=== PATIENT | male | born 1995 | race African-American/Black ===

== ENCOUNTER 2024-09-18 12:32 | Emergency (ER) | payer BC, MEDICAID ==
[~2024-09-18] VITALS: Ht 190.5 cm; Wt 79.0 kg
[2024-09-18 13:10] VITALS: BP 129/84; PULSE 104; RESP 16; TEMP 98.3; O2SAT 98
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
[2024-09-18] MEDS ORDERED: BACL10TA PO (14:21)
[2024-09-18] MEDS ORDERED: IBUP-1456 PO (14:21)
== END 2024-09-18 14:42 | disposition home or self-care (01) ==
LOC: ER 12:32
DX: S76.012A Strain of muscle, fascia and tendon of left hip, initial encounter (principal); M54.2 Cervicalgia; F17.210 Nicotine dependence, cigarettes, uncomplicated; Z79.899 Other long term (current) drug therapy; V49.88XA Car occupant (driver) (passenger) injured in other specified transport accidents, initial encounter; Y93.I9 Activity, other involving external motion; Y92.488 Other paved roadways as the place of occurrence of the external cause; Y99.8 Other external cause status
CPT/HCPCS: 72040; 73502

== ENCOUNTER 2025-01-07 08:41 | Emergency (ER) | payer BC, MEDICAID ==
[~2025-01-07] VITALS: Ht 190.5 cm; Wt 75.3 kg
[~2025-01-07 08:41] MED LIST: BACL10TA PO; IBUP-1456 PO
[2025-01-07 09:04] VITALS: BP 140/74; PULSE 97; RESP 18; TEMP 98.1; O2SAT 96
--- NOTE | 2025-01-07 09:10 | ED.PDOC ---
History of Present Illness(SKN HPI Comments A 29 YEAR OLD MALE PRESENTS TO THE ED WITH COMPLAINT OF RASH. PATIENT STATES HE HAS BEEN EXPERIENCING A RASH ON HIS FACE AND UPPER CHEST FOR THE PAST 3 DAYS. PATIENT WAS CONCERNED HE MAY BE HAVING AN ALLERGIC REACTION. PATIENT DENIES FEVER, CHILLS, SHORTNESS OF BREATH, CHEST PAIN, ABDOMINAL PAIN, NAUSEA, VOMITING, HEADACHE, OR OTHER COMPLAINTS. NO OTHER SYMPTOMS OR MODIFYING FACTORS AT THIS TIME. PATIENT IS ALERT, ORIENTED X 4, AND HAS STEADY GAIT. Chief Complaint: Rash Time Seen by MD: 08:54 Primary Care Provider: BALJIT History of Present Illness: Nurses Notes, Medications, Allergies Allergies: Coded Allergies: NO KNOWN ALLERGIES (Unverified , 06/18/16) Home Meds Active Scripts Triamcinolone Acetonide (Triamcinolone Acetonide) 0.025 % Cre, 1 APPLIC TOP BID, #60 GRAMS Prov:SHREYA LOPEZ 01/07/25 Methylprednisolone (Medrol Dosepak) 4 Mg Serafin, 4 MG PO UD, #21 TAB UAD Prov:SHREYA LOPEZ 01/07/25 Baclofen (Baclofen) 10 Mg Tab, 10 MG PO BID, #20 TAB Prov:SHREYA LOPEZ 09/18/24 Ibuprofen (Ibuprofen) 800 Mg Tab, 1 TAB PO TID, #30 TAB Prov:SHREYA LOPEZ 09/18/24 Information Source: Patient Mode of Arrival: Ambulatory Severity: Moderate Timing: Days Duration: Since onset, Days Prehospital treatment: None Location: Chest (UPPER CHEST), Face Mechanism: Spontaneous Onset Developed: Rash Occurence: Indoors Object: None Condition of Object: None Retained Foreign Body: No Wound Type: None Immunization Status of Animal: NA Tetanus: Unknown History of: None Associated Signs and Symptoms: Redness Past Medical History Past Medical History (Other): ECZEMA Surgical History: Denies all surgeries Family History Family History: Reviewed,noncontributory to illness Social History Smoker: Cigarettes Alcohol: Denies ETOH Use Drugs: Marijuana Lives In: Home Constitutional: denies: chills, diaphoresis, fatigue, fever, malaise, sweats, weakness, others EENTM: denies: blurred vision, double vision, ear bleeding, ear discharge, ear drainage, ear pain, ear ringing, eye pain, eye redness, hearing loss, mouth pain, mouth swelling, nasal discharge, nose bleeding, nose congestion, nose pain, photophobia, tearing, throat pain, throat swelling, voice changes, others Respiratory: denies: cough, hemoptysis, orthopnea, SOB at rest, shortness of breath, SOB with excertion, stridor, wheezing, others Cardiovascular: denies: chest pain, dizzy spells, diaphoresis, Dyspnea on exertion, edema, irregular heart beat, left arm pain, lightheadedness, palpitations, PND, syncope, others Gastrointestinal: denies: abdomen distended, abdominal pain, blood streaked bowels, constipated, diarrhea, dysphagia, difficulty swallowing, hematemesis, melena, nausea, poor appetite, poor fluid intake, rectal bleeding, rectal pain, vomiting, others Genitourinary: denies: burning, dysuria, flank pain, frequency, hematuria, incontinence, penile discharge, penile sore, pain, testicle pain, testicle swelling, urgency, others Neurological: denies: dizziness, fainting, headache, left sided numbness, left sided weakness, numbness, paresthesia, pre-existing deficit, right sided numbness, right sided weakness, seizure, speech problems, tingling, tremors, weakness, others Musculoskeletal: denies: back pain, gout, joint pain, joint swelling, muscle pain, muscle stiffness, neck pain, others Integumetry: reports: rash; denies: bruises, change in color, change in hair/nails, dryness, laceration, lesions, lumps, wounds, others Allergic/Immunocompromised: denies: Difficulty Healing, Frequent Infections, Hives, Itching, others Hematologic/Lymphatic: denies: anemia, blood clots, easy bleeding, easy bruising, swollen glands, others Endocrine: denies: excessive hunger, excessive sweating, excessive thirst, excessive urination, flushing, intolerance to cold, intolerance to heat, unexplained weight gain, unexplained weight loss, others Psychiatric: denies: anxiety, bipolar disorder, depression, hopeless, panic disorder, schizophrenia, sleepless, suicidal, others All Other Systems: Reviewed and Negative Physical Exam General Appearance: No Apparent Distress, Normal HEENT: Normal ENT Inspection, PERRL/EOMI, Pharynx Normal, TMs Normal Neck: Full Range of Motion, Non-Tender, Normal, Normal Inspection Respiratory: Chest Non-Tender, Lungs Clear, No Accessory Muscle Use, No Respiratory Distress, Normal Breath Sounds Cardiovascular: No Edema, No JVD, No Murmur, No Gallop, Normal Peripheral Pulses, Regular Rate/Rhythm Breast Exam: Deferred Gastrointestinal: No Organomegaly, Non Tender, No Pulsatile Mass, Normal Bowel Sounds, Soft Genitalia: Deferred Pelvic: Deferred Rectal: Deferred Extremities: No calf tenderness, Normal capillary refill, Normal inspection, Normal range of motion, Non-tender, No pedal edema Musculoskeletal : Apperance: Normal Neurologic: 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 ), Warm Peripheral Pulses: 2+ carotid (R), 2+ carotid (L) Lymphatic: No Adenopathy Was a procedure done? Was a procedure done?: No Differential Diagnosis (INTG) Differential Diagnosis: N/A Differential Diagnosis: Atopic dermatitis, Contact Dermatitis, Tinea, Urticaria, Other (ALLERGIC REACTION) Differential Diagnosis: N/A Abscess: N/A Differential Diagnosis: N/A X-Ray, Labs, Meds, VS Vital Signs Date Time Temp Pulse Resp B/P (MAP) Pulse Ox O2 Delivery O2 Flow Rate FiO2 01/07/25 09:04 97 18 96 Room Air 01/07/25 09:04 98.1 97 18 140/74 (96) 96 98.1 01/07/25 08:48 98.1 97 18 140/74 (96) 96 98.1 Current Medications Medications (Trade) Dose Ordered Sig/Bryson Route Start Time Stop Time Status Last Admin Epinephrine HCl 0.3 mg ONCE ONCE IM 01/07/25 09:15 01/07/25 09:16 DC 01/07/25 09:21 Methylprednisolone Sodium Succinate (Solu Medrol) 125 mg ONCE ONCE IM 01/07/25 09:15 01/07/25 09:16 DC 01/07/25 09:21 X-Ray, Labs, Meds, VS Comment EXTERNAL MEDICAL RECORDS REVIEWED: [NONE] INDEPENDENT HISTORIANS: [NONE] SOCIAL DETERMINANTS OF HEALTH: [NONE] LABS ORDERED: NONE REVIEWED AND INTERPRETED RESULTS: NONE IMAGING ORDERED: NONE TREATMENTS ORDERED: EPINEPHRINE 0.3 MG IM, SOLU-MEDROL 125 MG IM PROCEDURES PERFORMED: NONE CRITICAL CARE TIME: NONE I HAVE DISCUSSED THE PATIENT WITH THE ATTENDING PHYSICIAN DR. VAZ AND HE AGREES WITH THE PATIENT'S PLAN OF CARE AND DISPOSITION. BASED ON HISTORY OF PRESENT ILLNESS, AND PHYSICAL EXAM, PATIENT WILL BE DISCHARGED HOME. DISCUSSED PLAN FOR DISCHARGE HOME WITH RX [MEDROL DOSEPAK]. MEDICATION WARNINGS GIVEN. SHARED DECISION MAKING: PATIENT INSTRUCTED TO FOLLOW UP WITH PRIMARY CARE PROVIDER IN 1-2 DAYS FOR RE-EVALUATION OF SYMPTOMS. PATIENT VERBALIZES UNDERSTANDING TO RETURN TO ED FOR NEW OR WORSENING SYMPTOMS OR IF FOLLOW UP WITH PCP CANNOT BE OBTAINED. PATIENT FEELS COMFORTABLE GOING HOME AT THIS TIME. ALL QUESTIONS ADDRESSED AT TIME OF DISCHARGE. Time of 1ST Reevaluation: 09:40 Reevaluation 1ST: Improved Patient Education/Counseling: Diagnosis, Treatment, Need For Follow Up Family Education/Counseling: Diagnosis, Treatment, Need For Follow Up Medical Screening: No EMC Exist At This Time Departure 1 Departure Time of Disposition: 09:40 Impression: Primary Impression: Allergic reaction Qualified Codes: T78.40XA - Allergy, unspecified, initial encounter Disposition: HOME / SELF CARE / HOMELESS Condition: Stable Additional Instructions: FOLLOW-UP WITH PCP IN 1 TO 2 DAYS. TAKE MEDICATIONS PRESCRIBED. RETURN TO ED FOR ANY NEW OR WORSENING SYMPTOMS. e-Prescriptions Triamcinolone Acetonide (Triamcinolone Acetonide) 0.025 % Cre 1 APPLIC TOP BID, #60 GRAMS Prov: SHREYA LOPEZ 01/07/25 Methylprednisolone (Medrol Dosepak) 4 Mg Serafin 4 MG PO UD, #21 TAB UAD Prov: SHREYA LOPEZ 01/07/25 Discharged With: Self Critical Care Note Critical Care Time?: No Stability Stability form required: No I personally scribed for SHREYA LOPEZ ([email or web address]) on 01/07/25 at 09:10. Electronically submitted by Robert Mix ([email or web address]). SHREYA LOPEZ January 07, 2025 09:10
[2025-01-07] MEDS: EPINEPHrine HCL 1 MG/1 ML AMP IM ONE (09:21)
[2025-01-07] MEDS: methylPREDNISolone SOD SUCC 125 MG/2 ML VL IM ONE (09:21)
[2025-01-07] MEDS ORDERED: METH4PAK PO (09:37)
[2025-01-07] MEDS ORDERED: TRIA0.02 TOP (09:37)
== END 2025-01-07 09:46 | disposition home or self-care (01) ==
LOC: ER 08:41
DX: T78.40XA Allergy, unspecified, initial encounter (principal); F17.210 Nicotine dependence, cigarettes, uncomplicated; F12.90 Cannabis use, unspecified, uncomplicated; Z79.899 Other long term (current) drug therapy; Z79.1 Long term (current) use of non-steroidal anti-inflammatories (NSAID); X58.XXXA Exposure to other specified factors, initial encounter
CPT/HCPCS: 96372; 99284; J0171; J2919

== ENCOUNTER 2025-02-08 15:10 | Emergency (ER) | payer BC, MEDICAID ==
[~2025-02-08] VITALS: Ht 190.5 cm; Wt 77.4 kg
[~2025-02-08 15:10] MED LIST changes: +METH4PAK PO; +TRIA0.02 TOP
[2025-02-08 15:20] VITALS: BP 129/87; PULSE 110; RESP 16; TEMP 98.3; O2SAT 98
[2025-02-08] MEDS ORDERED: TRIA0.02 TOP (15:24)
[2025-02-08] MEDS ORDERED: METH4PAK PO (15:24)
--- NOTE | 2025-02-08 15:28 | ED.PDOC ---
HPI Allergic reaction HPI Comments 29 year old male presents to the ED with a chief complaint of allergic reaction onset 2 days. Patient states he was seen in this ED on 01/07/25 due to similar symptoms, was prescribed Triamcinolone cream and Methylprednisolone, improved symptoms. Patient states he took a shower, after washing off conditioner he n oticed face began to experience burning sensation, then developed mild facial swelling and itching, along with a rash on his neck and shoulders. Denies any PMHx as well as shortness of breath, cough, congestion, nausea, vomiting, diarrhea, abdominal pain, chest pain. No other symptoms or modifying factors present at this time. Chief Complaint: Allergic Reaction Time Seen by MD: 15:20 Primary Care Provider: UNK Reviewed Notes: Medications, Allergies Allergies: Coded Allergies: NO KNOWN ALLERGIES (Unverified , 06/18/16) Home Meds Active Scripts Triamcinolone Acetonide (Triamcinolone Acetonide) 0.025 % Cre, 1 APPLIC TOP BID, #60 GRAMS Prov:SFOIA BANDA MD 02/08/25 Methylprednisolone (Medrol Dosepak) 4 Mg Serafin, 4 MG PO UD, #21 TAB UAD Prov:SOFIA BANDA MD 02/08/25 Baclofen (Baclofen) 10 Mg Tab, 10 MG PO BID, #20 TAB Prov:SHREYA LOPEZ 09/18/24 Ibuprofen (Ibuprofen) 800 Mg Tab, 1 TAB PO TID, #30 TAB Prov:SHREYA LOPEZ 09/18/24 Information Source: Patient Mode of Arrival: Ambulatory Severity: Moderate Rash: Moderate SOB: None Difficulty swallowing: None Pruritus: None Timing: Days Duration: Since onset Prehospital treatment: None Location: Chest, Face Exposed to: Other Developed: Generalized erythema, Rash History of: Urticaria Modyifying Factors: None Past Medical History PAST MEDICAL HISTORY: Denies Surgical History: Denies all surgeries Family History Family History: Reviewed,noncontributory to illness Social History Smoker: Cigarettes Alcohol: Denies ETOH Use Drugs: Marijuana Lives In: Home All Other Systems: Reviewed and Negative (as perHPI) Physical Exam General Appearance: No Apparent Distress HEENT: Pharynx Normal, Other (Pupils and face symmetric. Moist mucous membranes. Subtle forehead and cheek soft tissue swelling and erythema. ) Neck: Full Range of Motion, Normal Inspection Respiratory: Lungs Clear, No Accessory Muscle Use, No Respiratory Distress, Normal Breath Sounds Cardiovascular: No JVD, Regular Rate/Rhythm Breast Exam: Deferred Gastrointestinal: Non Tender, Soft Genitalia: Deferred Pelvic: Deferred Rectal: Deferred Extremities: Normal inspection, Normal range of motion, Non-tender, No pedal edema Neurologic: Alert (Oriented x4), Normal Affect, Normal Mood, Other (Ambulatory) Cerebellar Function: NOT DONE Reflexes: NOT DONE Skin: Dry, Rash (Erythematous papular rash on lower neck and left shoulder), Warm Lymphatic: NOT DONE Was a procedure done? Was a procedure done?: No Differential diagnosis (all) Differential Diagnosis: Angioedema, Contact Dermatitis, Urticaria X-Ray, Labs, Meds, VS Vital Signs Date Time Temp Pulse Resp B/P (MAP) Pulse Ox O2 Delivery O2 Flow Rate FiO2 02/08/25 15:20 98.3 110 16 129/87 (101) 98 98.3 Current Medications Medications (Trade) Dose Ordered Sig/Bryson Route Start Time Stop Time Status Last Admin Dexamethasone Sodium Phosphate (Decadron Injection) 10 mg ONCE ONCE IM 02/08/25 15:30 02/08/25 15:31 DC 02/08/25 15:30 Diphenhydramine HCl (Benadryl Capsule) 50 mg ONCE ONCE PO 02/08/25 15:30 02/08/25 15:31 DC 02/08/25 15:31 X-Ray, Labs, Meds, VS Comment 29-year-old male with no significant past medical history presenting with an allergic reaction characterized by rash and mild soft tissue swelling Vitals remarkable for heart rate 110 Exam remarkable for erythematous rash on face, lower neck and shoulders Rhythm strip independently interpreted by me: Sinus tach, rate 110, no ectopy. Patient treated with the following in the ED: Decadron 10 mg IM, Benadryl 50 mg p.o. On re-evaluation, patient states symptoms are improving. Tachycardia has resolved and other vitals were stable. Patient does not appear septic at this time, as tachycardia is likely due to discomfort. Patient appears stable for discharge with close outpatient follow-up with his primary physician. Patient states the medications prescribed on his last visit for the same complaint were effective, so these were renewed. Time of 1ST Reevaluation: 15:50 Reevaluation 1ST: Unchanged Time of 2ND Reevaluation: 16:03 Reevaluation 2ND: Improved Patient Education/Counseling: Diagnosis, Treatment, Prognosis Family Education/Counseling: No Family Present Departure 1 Departure Time of Disposition: 16:03 Impression: Primary Impression: Allergic reaction Qualified Codes: T78.40XA - Allergy, unspecified, initial encounter Disposition: HOME / SELF CARE / HOMELESS Condition: Stable Additional Instructions: I have prescribed the same medications you were prescribed on your last visit. Follow-up with your primary doctor in 1-2 days. e-Prescriptions Triamcinolone Acetonide (Triamcinolone Acetonide) 0.025 % Cre 1 APPLIC TOP BID, #60 GRAMS Prov: SOFIA BANDA MD 02/08/25 Methylprednisolone (Medrol Dosepak) 4 Mg Serafin 4 MG PO UD, #21 TAB UAD Prov: SOFIA BANDA MD 02/08/25 Discharged With: Self Critical Care Note Critical Care Time?: No Stability Stability form required: No Heart Score Heart Score: Heart Score Response (Comments) Value History N/A 0 EKG N/A 0 Age N/A 0 Risk Factors N/A 0 Troponin N/A 0 Total 0 I personally scribed for SOFIA BANDA MD ([email or web address]) on 02/08/25 at 15:28. Electronically submitted by Aurelia Reyes ([email or web address]). SOFIA BANDA MD Feb 08, 2025 15:28
[2025-02-08] MEDS: DexAMETHasone SOD PHOS 10MG/1ML VIAL INJ IM ONE (15:30)
[2025-02-08] MEDS: diphenhdrAMINE HCL 25 MG CAP PO ONE (15:31)
== END 2025-02-08 16:44 | disposition home or self-care (01) ==
LOC: ER 15:10
DX: T78.40XA Allergy, unspecified, initial encounter (principal); F17.210 Nicotine dependence, cigarettes, uncomplicated; Z79.899 Other long term (current) drug therapy; X58.XXXA Exposure to other specified factors, initial encounter
CPT/HCPCS: 96372; 99283; J1100

== ENCOUNTER 2025-07-10 09:09 | Emergency (ER) | payer BC, MEDICAID ==
[~2025-07-10] VITALS: Ht 188 cm; Wt 80.9 kg
[2025-07-10 09:28] VITALS: BP 146/85; PULSE 99; RESP 17; TEMP 98.6; O2SAT 98
--- NOTE | 2025-07-10 09:53 | ED.PDOC ---
Psychiatric HPI Comments 30 y/o M, with no prior psychiatric history presents to the ED for CC of mental health. Patient reports, that his grandmother recently passed which has now brought on new stress into his life d/t separation of her assets. Patient endorses, since her passing x1week ago he has had a "difficult" time while at work with feelings of " being present but my mind is somewhere else". Patient admits, to the use of alcohol and drugs yesterday (07/10/25) and denies any usage while at work. At this time patient denies suicidal ideations, homicidal ideations, auditory hallucinations, or visual hallucinations. No other symptoms or modifying factors are present at this time. Chief Complaint: Mental Health Time Seen by MD: 09:35 Primary Care Provider: BALJIT Reviewed Notes: Nurses Notes, Medications, Allergies Information Source: Patient Mode of Arrival: Ambulatory Severity: Able to Care for Self Severity of Pain: None Severity of Mental Status: Moderate Severity of Symptoms: Moderate Timing: Weeks Duration: Since onset Ingestion: None Circumstance: None Current substance abuse: Unknown Stressors: Family History of: None Quality: None Location: None Location of pain or injury: None Associated signs and symptoms: None Past Medical History PAST MEDICAL HISTORY: Denies Surgical History: Denies all surgeries Family History Family History: Reviewed,noncontributory to illness Social History Smoker: Cigarettes Alcohol: Denies ETOH Use Drugs: Marijuana Lives In: Home Constitutional: denies: chills, diaphoresis, fatigue, fever, malaise, sweats, weakness, others EENTM: denies: blurred vision, double vision, ear bleeding, ear discharge, ear drainage, ear pain, ear ringing, eye pain, eye redness, hearing loss, mouth pain, mouth swelling, nasal discharge, nose bleeding, nose congestion, nose pain, photophobia, tearing, throat pain, throat swelling, voice changes, others Respiratory: denies: cough, hemoptysis, orthopnea, SOB at rest, shortness of breath, SOB with excertion, stridor, wheezing, others Cardiovascular: denies: chest pain, dizzy spells, diaphoresis, Dyspnea on exertion, edema, irregular heart beat, left arm pain, lightheadedness, palpitations, PND, syncope, others Gastrointestinal: denies: abdomen distended, abdominal pain, blood streaked bowels, constipated, diarrhea, dysphagia, difficulty swallowing, hematemesis, melena, nausea, poor appetite, poor fluid intake, rectal bleeding, rectal pain, vomiting, others Genitourinary: denies: burning, dysuria, flank pain, frequency, hematuria, incontinence, penile discharge, penile sore, pain, testicle pain, testicle swelling, urgency, others Neurological: reports: others (insomnia); denies: dizziness, fainting, headache, left sided numbness, left sided weakness, numbness, paresthesia, pre- existing deficit, right sided numbness, right sided weakness, seizure, speech problems, tingling, tremors, weakness Musculoskeletal: denies: back pain, gout, joint pain, joint swelling, muscle pain, muscle stiffness, neck pain, others Integumetry: denies: bruises, change in color, change in hair/nails, dryness, laceration, lesions, lumps, rash, wounds, others Allergic/Immunocompromised: denies: Difficulty Healing, Frequent Infections, Hives, Itching, others Hematologic/Lymphatic: denies: anemia, blood clots, easy bleeding, easy bruising, swollen glands, others Endocrine: denies: excessive hunger, excessive sweating, excessive thirst, excessive urination, flushing, intolerance to cold, intolerance to heat, unexplained weight gain, unexplained weight loss, others Psychiatric: denies: anxiety, bipolar disorder, depression, hopeless, panic disorder, schizophrenia, sleepless, suicidal, others All Other Systems: Reviewed and Negative Physical Exam General Appearance: Moderate Distress HEENT: Normal ENT Inspection, Pharynx Normal, TMs Normal Neck: Full Range of Motion, Non-Tender, Normal, Normal Inspection Respiratory: Chest Non-Tender, Lungs Clear, No Accessory Muscle Use, No Respiratory Distress, Normal Breath Sounds Cardiovascular: No Edema, No JVD, No Murmur, No Gallop, Normal Peripheral Pulses, Regular Rate/Rhythm Breast Exam: Deferred Gastrointestinal: No Organomegaly, Non Tender, No Pulsatile Mass, Normal Bowel Sounds, Soft Genitalia: Deferred Pelvic: Deferred Rectal: Deferred Extremities: No calf tenderness, Normal capillary refill, Normal inspection, Normal range of motion, Non-tender, No pedal edema Musculoskeletal : Apperance: Normal Neurologic: Alert, toll line mechanic II-XII nml as Tested, No Motor Deficits, Normal Affect, Normal Mood, No Sensory Deficits Cerebellar Function: Normal Reflexes: Normal Skin: Dry, Normal Color, Warm Peripheral Pulses: 3+ Radial (R), 3+ Radial (L) Lymphatic: No Adenopathy Was a procedure done? Was a procedure done?: No Psych Differential Dx Psych. Differential Dx: Anxiety, Depression X-Ray, Labs, Meds, VS Vital Signs Date Time Temp Pulse Resp B/P (MAP) Pulse Ox O2 Delivery O2 Flow Rate FiO2 07/10/25 09:28 98.6 99 17 146/85 (105) 98 98.6 07/10/25 09:28 Room Air* 0 21 07/10/25 09:13 98.1 97 16 146/83 98 98.1 Lab Test 07/10/25 09:30 07/10/25 09:24 Range/Units Urine Color Light-yellow Yellow Urine Clarity Clear Clear Urine pH 6.0 5.0-9.0 Urine Specific [place] 1.006 1.001-1.035 Urine Protein Negative Negative Urine Ketones Negative Negative Urine Blood Negative Negative /uL Urine Nitrite Negative Negative Urine Bilirubin Negative Negative Urine Urobilinogen Normal Negative mg/dL Urine Leukocyte Esterase Negative Negative /uL Urine RBC None seen 0 - 3 /hpf Urine Microscopic WBC 0-3 /HPF Urine Squamous Epithelial Cells Few <5 /hpf Urine Bacteria None seen None Seen /hpf Urine Glucose Normal Normal mg/dL Urine Opiates Screen Neg NEGATIVE Urine Fentanyl Screen Neg NEGATIVE Urine Barbiturates Screen Neg NEGATIVE Urine Phencyclidine Screen Neg NEGATIVE Urine Amphetamines Screen Neg NEGATIVE Urine Benzodiazepines Screen Neg NEGATIVE Urine Cocaine Screen Neg NEGATIVE Urine Cannabinoids Screen Neg NEGATIVE Plasma/Serum Blood Alcohol 304.4 H <10 mg/dL Patient alert. Vitals stable. Answering all questions. Ambulating. Has been going through a lot with family. Blood alcohol level elevated. Explained to the patient. Was told to follow up with his primary care physician. Was told to come back if there is any problem. Time of 1ST Reevaluation: 10:05 Reevaluation 1ST: Unchanged Patient Education/Counseling: Diagnosis, Treatment Family Education/Counseling: No Family Present Departure 1 Departure Time of Disposition: 11:14 Impression: Primary Impression: Alcohol abuse Disposition: 01 HOME / SELF CARE / HOMELESS Condition: Good Discharged With: Self Critical Care Note Critical Care Time?: No Stability Stability form required: No Heart Score Heart Score: Heart Score Response (Comments) Value History N/A 0 EKG N/A 0 Age N/A 0 Risk Factors N/A 0 Troponin N/A 0 Total 0 I personally scribed for KATHYA FORMAN MD ([email or web address]) on 07/10/25 at 09:53. Electronically submitted by Alicia Alan ([email or web address]). KATHYA FORMAN MD Jul 10, 2025 09:53
[2025-07-10 09:54] LABS: Urine Protein, UAD Negative (Negative)
[2025-07-10 10:06] LABS: Amphetamine Screen, Urine Neg (NEGATIVE); Barbiturate Scree,Urine Neg (NEGATIVE); Benzodiazephine Screen, Urine Neg (NEGATIVE); Cannabinoid Screen, Urine Neg (NEGATIVE); Cocaine Screen, Urine Neg (NEGATIVE); Opiate Scree,Urine Neg (NEGATIVE); Phencyclidine Screen, Urine Neg (NEGATIVE)
== END 2025-07-10 11:18 | disposition home or self-care (01) ==
LOC: ER 09:09 → EEVIPCON 09:09 → ER 11:18
DX: F10.10 Alcohol abuse, uncomplicated (principal); F17.210 Nicotine dependence, cigarettes, uncomplicated; F19.10 Other psychoactive substance abuse, uncomplicated; Z79.899 Other long term (current) drug therapy
CPT/HCPCS: 36415; 80307; 80320; 81001